=== PATIENT | female | born 1990 | race Two or more races ===

== ENCOUNTER 2016-08-24 07:30 | Inpatient (IN) | payer OTHER ==
[2016-08-24] MEDS ORDERED: CITRIC ACID/SODIUM CITRATE 30 ML UNIT-DOSE CUP PO ONE (08:52)
[2016-08-24] MEDS ORDERED: ELECTROLYTE-148 SOLN 1,000 ML IV SCH (09:00)
--- NOTE | 2016-08-24 09:03 | HP ---
Past Medical History - Primary Care Physician PCP:: Rory Perera - Admission Chief Complaint: 39 weeks, previous c/s , request of c/s and BTL History of Present Illness: 25 yo f edc by dania 08/30/16 39 weekswith 3 previous c/s , request of repeat c/s abd BTL, risk of c/s discussed aware risk of bowel, bladder, vessele injury, poat op complication , dvt,, post op transfusion, risk of btl discussed aware small failure risk and risk of ectopic History Source: Patient Limitations to Obtaining History: No Limitations - Past Medical History ...: 4 ...Para: 3 ...Term: 3 ...: 0 ... Weeks Gestation by Dates: 39 ...EDC by Dania: 08/31/16 Heme/Onc: Yes: Anemia - Past Surgical History Past Surgical History: Yes: Hx Myomectomy: No Hx Transabdominal Cerclage: No - Smoking History Smoking history: Never smoked Have you smoked in the past 12 months: No Aproximately how many cigarettes per day: 0 - Alcohol/Substance Use Hx Alcohol Use: No History of Substance Use: reports: None - Social History History of Recent Travel: No Home Medications - Allergies Allergies/Adverse Reactions: Allergies Allergy/AdvReac Type Severity Reaction Status Date / Time No Known Allergies Allergy Verified 03/11/12 14:29 - Home Medications Home Medications: Ambulatory Orders Acetaminophen [Tylenol .Regular Strength -] 650 mg PO Q4H PRN #0 tablet Ibuprofen [Motrin -] 600 mg PO Q4H PRN #0 tablet 07/07/13 Review of Systems - Review of Systems Constitutional: reports: No Symptoms Eyes: reports: No Symptoms HENT: reports: No Symptoms Cardiovascular: reports: No Symptoms Respiratory: reports: No Symptoms Gastrointestinal: reports: No Symptoms Genitourinary: reports: No Symptoms Breasts: reports: No Symptoms Reported Musculoskeletal: reports: No Symptoms Integumentary: reports: No Symptoms Neurological: reports: No Symptoms Endocrine: reports: No Symptoms Hematology/Lymphatic: reports: No Symptoms Psychiatric: reports: No Symptoms Physical Exam - Maternity Constitutional: Yes: Well Nourished, No Distress, Calm Eyes: Yes: WNL, Conjunctiva Clear, EOM Intact HENT: Yes: WNL, Atraumatic, Normocephalic Neck: Yes: WNL, Supple, Trachea Midline Cardiovascular: Yes: WNL, Regular Rate and Rhythm Breast(s): Yes: WNL - Abdominal Exam/OB Fundal Height: 40 Number of Fetuses: Single Presentation: Vertex Monitor Mode: External Heart Rate Location: [facility] Category: I Accelerations: Uniform Decelerations: None - Vaginal Exam/OB Vaginal Bleediing: No Speculum Exam: No Dilatation (cm): closed Effacement (%): 0 Amniotic Membrane Status: Intact Presentation: Vertex/Position Station: -3 - Physical Exam Musculoskeletal: Yes: Back Pain Edema: Yes Edema: LLE: Trace, RLE: Trace Deep Tendon Reflex Grade: Normal +2 Psychiatric: Yes: WNL Hemorrhage Risk Assessment - Risk Factors Medium Risk Factors: Yes: Prior , uterine surgery,or multiple laparotomies Risk Score: 1 Risk Level: Medium Risk Problem List - Problems (1) with 39 completed weeks gestation Code(s): Z3A.39 - 39 WEEKS GESTATION OF (2) Previous delivery affecting , antepartum Code(s): O34.219 - MATERNAL CARE FOR UNSP TYPE SCAR FROM PREVIOUS DEL (3) Sterilization Code(s): Z30.2 - ENCOUNTER FOR STERILIZATION Assessment/Plan repeat c/s and btl, rba discussed
[2016-08-24 09:07] VITALS: BMI 30.1
[2016-08-24 09:16] LABS: BASOPHIL 0.3 % (0-2.0); EOSINOPHIL 0.9 % (0-4.5); MCH 30.1 pg (25.7-33.7); MCHC 33.5 g/dl (32.0-36.0); MEAN CELL VOLUME 89.9 fl (80-96); MEAN PLT VOLUME 7.5 fl (7.5-11.1); NEUTROPHILS 64.6 % (42.8-82.8); PLATELET COUNT 232 K/MM3 (134-434); RDW 14.2 % (11.6-15.6); WHITE BLOOD COUNT 6.8 K/mm3 (4.0-10.0)
[2016-08-24 09:27] LABS: INR 0.93 (0.82-1.09); PROTHROMBIN TIME (PATIENT) 10.2 SEC (9.98-11.88)
[2016-08-24 09:30] LABS: ACTIVATED PTT 29.1 SECONDS (26.9-34.4)
[2016-08-24 09:38] LABS: CALCIUM 7.9 mg/dL (8.5-10.1); CREATININE 0.6 mg/dL (0.55-1.02)
[2016-08-24] MEDS ORDERED: IBUPROFEN 800 MG/8 ML IJ IVPB PRN ×2 (10:53→10:56)
[2016-08-24] MEDS ORDERED: ONDANSETRON 4 MG/2 ML VIAL IVPUSH PRN (10:53)
[2016-08-24] MEDS ORDERED: BENZOCAINE 28 GM HEMORRHOIDAL OINTMENT PR PRN (10:56)
[2016-08-24] MEDS ORDERED: diphenhydrAMINE HCL 25 MG CAPSULE (FP) PO PRN (10:56)
[2016-08-24] MEDS ORDERED: BENZOCAINE 20% 57 GM BOTTLE TP PRN (10:56)
[2016-08-24] MEDS ORDERED: METHYLERGONOVINE MALEATE 0.2 MG/1 ML AMP IM PRN (10:56)
[2016-08-24] MEDS ORDERED: WITCH HAZEL 50% (TUCKS) 40 PAD/JAR PAD TP PRN (10:56)
[2016-08-24] MEDS ORDERED: oxyCODONE HCL 5 MG TABLET PO PRN (10:56)
[2016-08-24] MEDS ORDERED: DEXTROSE 5%-LACTATED RINGERS 1,000 ML IV SCH (11:00)
[2016-08-24] MEDS ORDERED: OXYTOCIN 20 UNITS in 0.9% NS 1,000 ML IV SCH (11:00)
--- NOTE | 2016-08-24 13:03 | OP ---
DATE OF OPERATION: 08/24/2016 PREOPERATIVE DIAGNOSES: , 39 weeks; 3 previous sections; request of repeat section and tubal ligation. POSTOPERATIVE DIAGNOSES: , 39 weeks; 3 previous sections; request of repeat section and tubal ligation. PROCEDURE: Repeat low-segment transverse section. SURGEON: Rory Perera MD ADMINISTRATIVE STAFF SUPERVISOR: Lauren Madden MD ANESTHESIA: Spinal. ANESTHESIOLOGIST: Salbador Coleman MD ESTIMATED BLOOD LOSS: 500 mL. OPERATION: Patient was taken to the operating room on adequate spinal anesthesia. Abdomen and perineum was prepped and draped. Pfannenstiel abdominal skin incision was made over the previous incision. Abdominal wall was cut layer by layer until peritoneum was exposed and incised. Upon entering abdominal cavity, lower uterine segment was identified and uterovesical fold of peritoneum established. Bladder was pushed down. Then with the lower blade of the Lauren retractor in pelvis, a low transverse uterine incision was made, incision extended laterally. Amniotic sac was entered, clear fluid. Head delivered from right occiput transverse position. Nasopharynx was suctioned. Live baby was delivered. Placenta was delivered manually. Uterine cavity was cleaned of all remaining tissue. Uterine incision was closed in 2 layers, 1st layer with Biosyn continuous suture, the 2nd layer with 0 Biosyn imbricating the 1st layer. Bladder flap was closed with 0 Biosyn continuous suture. Both tubes and ovaries were checked, were normal. Right tube was grasped with Ervin clamp. Right tube was doubly tagged with 2-0 plain. A portion of the tube was removed and endosalpinx was cauterized. The same procedure repeated for opposite tube. Pelvic cavity was several times irrigated. No active bleeding was seen. All the lap, sponge, instrument count were correct. Then peritoneum was closed with 0 Biosyn continuous suture. Muscles were brought together with interrupted suture of 0 Biosyn. Fascia was closed with 0 Biosyn continuous suture, subcutaneous fat with interrupted suture of 0 Biosyn, and the skin was closed with tamiko. Patient tolerated procedure well, left the OR in good condition. Madonna [id number]
[2016-08-24] MEDS ORDERED: CEFAZOLIN (PRE-DOCKED) 50 ML IVPB ONE (17:40)
[2016-08-24] MEDS: CEFAZOLIN 1 GM/D5W 50 ML IVPB SCH (17:49)
[2016-08-24] MEDS: FERROUS SO4 325 MG TABLET (FP) PO SCH (22:00)
[2016-08-25] MEDS ORDERED: CEFAZOLIN (PRE-DOCKED) 50 ML IVPB ONE (01:39)
[2016-08-25] MEDS: CEFAZOLIN 1 GM/D5W 50 ML IVPB SCH (01:51)
[2016-08-25] MEDS: SIMETHICONE 80 MG TAB.CHEW (FP) PO PRN ×3 (04:40→22:11)
[2016-08-25] MEDS: IBUPROFEN 600 MG TABLET (FP) PO PRN ×3 (04:56→22:11)
[2016-08-25 08:25] LABS: BASOPHIL 0.2 % (0-2.0); MCH 30.7 pg (25.7-33.7); MCHC 34.2 g/dl (32.0-36.0); MEAN CELL VOLUME 89.8 fl (80-96); MEAN PLT VOLUME 7.7 fl (7.5-11.1); NEUTROPHILS 77.7 % (42.8-82.8); PLATELET COUNT 218 K/MM3 (134-434); RDW 14.4 % (11.6-15.6); WHITE BLOOD COUNT 9.4 K/mm3 (4.0-10.0)
--- NOTE | 2016-08-25 08:41 | PN ---
Post Progress Note - Subjective Subjective: no complains of pain Post Day: 1 Type of Delivery: Repeat C/S Vital Signs: Vital Signs Temperature 98.1 F 08/25/16 08:37 Pulse Rate 87 08/25/16 08:37 Respiratory Rate 20 08/25/16 08:37 Blood Pressure 109/65 08/25/16 08:37 O2 Sat by Pulse Oximetry (%) 100 08/24/16 11:45 Breast Exam: Yes: Soft, Other (bottle & BF ). No: Engorged Uterus: Yes: Fundus Firm, Fundus below umbilicus, Non-tender Incision: Yes: Dressing dry and intact. No: Redness, Oozing Abdomen/GI: Yes: Abdomen soft, Tender, Tolerating PO (clear liquids ). No: Abdominal Distention, Passing flatus Lochia: Yes: Rubra Lochia, amount: Moderate Extremities: Yes: Calves non-tender Perineum: Yes: Intact Activity: Ambulating - Labs Labs: CBC WBC 9.4 K/mm3 (4.0-10.0) D 08/25/16 06:50 RBC 4.17 M/mm3 (3.60-5.2) 08/25/16 06:50 Hgb 12.8 GM/dL (10.7-15.3) 08/25/16 06:50 Hct 37.5 % (32.4-45.2) 08/25/16 06:50 MCV 89.8 fl (80-96) 08/25/16 06:50 MCHC 34.2 g/dl (32.0-36.0) 08/25/16 06:50 RDW 14.4 % (11.6-15.6) 08/25/16 06:50 Plt Count 218 K/MM3 (134-434) 08/25/16 06:50 MPV 7.7 fl (7.5-11.1) 08/25/16 06:50 Neutrophils % 77.7 % (42.8-82.8) D 08/25/16 06:50 Lymphocytes % 10.8 % (8-40) D 08/25/16 06:50 Monocytes % 10.3 % (3.8-10.2) H 08/25/16 06:50 Eosinophils % 1.0 % (0-4.5) 08/25/16 06:50 Basophils % 0.2 % (0-2.0) 08/25/16 06:50 Assessment/Plan stable plan ct PO care, repeat cbc today
[2016-08-25] MEDS: ENOXAPARIN NA (PORCINE) 40 MG/0.4 ML DISP.SYRIN SQ SCH (09:21)
[2016-08-25] MEDS: FERROUS SO4 325 MG TABLET (FP) PO SCH ×2 (09:23→22:11)
[2016-08-25] MEDS ORDERED: DIPHTH,PERTUSS(ACELL),TET 0.5 ML DISP.SYRIN IM ONE (10:00)
[2016-08-25] MEDS ORDERED: BISACODYL 10 MG SUPP.RECT RC PRN (10:56)
--- NOTE | 2016-08-25 13:28 | PN ---
Progress Note (short form) - Note Progress Note: POD #1 - s/p repeat with bilateral tubal ligation under spinal anesthesia with duramorph. Pt. doing well, resting comfortably in bed. No complaints. Good pain control. No apparent anesthetic complications noted. Continue current care.
[2016-08-25] MEDS: oxyCODONE HCL 5 MG TABLET PO PRN ×2 (14:51→22:12)
--- NOTE | 2016-08-26 08:54 | PN ---
Post Progress Note Post Day: 2 Type of Delivery: Repeat C/S Vital Signs: Vital Signs Temperature 98.6 F 08/25/16 21:07 Pulse Rate 75 08/25/16 21:07 Respiratory Rate 20 08/25/16 21:07 Blood Pressure 115/81 08/25/16 21:07 O2 Sat by Pulse Oximetry (%) 100 08/24/16 11:45 Breast Exam: Yes: Soft Uterus: Yes: Fundus Firm Incision: Yes: Sutures intact Abdomen/GI: Yes: Abdomen soft Lochia: Yes: Rubra Lochia, amount: Small Extremities: Yes: Calves non-tender Perineum: Yes: Intact - Labs Labs: CBC WBC 9.4 K/mm3 (4.0-10.0) D 08/25/16 06:50 RBC 4.17 M/mm3 (3.60-5.2) 08/25/16 06:50 Hgb 12.8 GM/dL (10.7-15.3) 08/25/16 06:50 Hct 37.5 % (32.4-45.2) 08/25/16 06:50 MCV 89.8 fl (80-96) 08/25/16 06:50 MCHC 34.2 g/dl (32.0-36.0) 08/25/16 06:50 RDW 14.4 % (11.6-15.6) 08/25/16 06:50 Plt Count 218 K/MM3 (134-434) 08/25/16 06:50 MPV 7.7 fl (7.5-11.1) 08/25/16 06:50 Neutrophils % 77.7 % (42.8-82.8) D 08/25/16 06:50 Lymphocytes % 10.8 % (8-40) D 08/25/16 06:50 Monocytes % 10.3 % (3.8-10.2) H 08/25/16 06:50 Eosinophils % 1.0 % (0-4.5) 08/25/16 06:50 Basophils % 0.2 % (0-2.0) 08/25/16 06:50 Assessment/Plan as above oob pain control
[2016-08-26] MEDS: IBUPROFEN 600 MG TABLET (FP) PO PRN ×3 (08:56→21:38)
[2016-08-26] MEDS: SIMETHICONE 80 MG TAB.CHEW (FP) PO PRN ×2 (08:57→21:38)
[2016-08-26] MEDS: ENOXAPARIN NA (PORCINE) 40 MG/0.4 ML DISP.SYRIN SQ SCH (09:38)
[2016-08-26] MEDS: FERROUS SO4 325 MG TABLET (FP) PO SCH ×2 (09:38→21:39)
[2016-08-26] MEDS: oxyCODONE HCL 5 MG TABLET PO PRN ×2 (10:49→18:26)
--- NOTE | 2016-08-26 15:47 | DS ---
Physical Exam-DOOR TENDER Vital Signs: Vital Signs Temperature 97.9 F 08/26/16 07:30 Pulse Rate 72 08/26/16 07:30 Respiratory Rate 20 08/26/16 07:30 Blood Pressure 119/72 08/26/16 07:30 O2 Sat by Pulse Oximetry (%) 100 08/24/16 11:45 Constitutional: Yes: Well Nourished, No Distress, Calm Eyes: Yes: WNL, Conjunctiva Clear, EOM Intact HENT: Yes: WNL, Atraumatic, Normocephalic Neck: Yes: WNL, Supple, Trachea Midline Cardiovascular: Yes: WNL, Regular Rate and Rhythm Respiratory: Yes: WNL, Regular, CTA Bilaterally Gastrointestinal: Yes: WNL ...Rectal Exam: Yes: WNL Renal/: Yes: WNL Breast(s): Yes: WNL Musculoskeletal: Yes: WNL Extremities: Yes: WNL Integumentary: Yes: WNL Neurological: Yes: WNL, Alert, Oriented ...Motor Strength: WNL Psychiatric: Yes: WNL, Alert, Oriented Labs: CBC, BMP 08/25/16 06:50 08/24/16 08:50 Delivery - Delivery Type of Anesthesia: Spinal Episiotomy/Laceration: None EBL (cc): 500 Delivery, Single - Stages of Labor Date of Delivery: 08/24/16 Time of Delivery: 10:23 Time Placenta Delivered: 10:24 - Condition of Infant Finisher Machine/Portfolio Analyst Present: Yes Name: Sonja Wilson Gender: Female Weight: 7 lb 4 oz Position: Right, OT Total Hours ROM (Hrs/Mins): 3MIN - 1 Minute Total Score: 9 5 Minutes Total Score: 9 - Feeding Plan Initial Plan: Elected not to breastfeed exclusively throughout hospitalization Discharge Summary Reason For Visit: C/SEC Current Active Problems with 39 completed weeks gestation (Acute) Previous delivery affecting , antepartum (Acute) Sterilization (Acute) Condition: Good - Instructions Diet, Activity, Other Instructions: regular diet, folow up [facility] care 1 week Referrals: Rory Perera MD [Staff Physician] - Disposition: HOME - Home Medications Comprehensive Discharge Medication List: Ambulatory Orders Ferrous Sulfate [Feosol] 325 mg PO BID 08/24/16 Pnv95/Ferrous Fumarate/FA [ Vitamin Tablet] 1 tab PO DAILY 08/24/16 Ibuprofen [Motrin -] 600 mg PO QID #28 tablet 08/26/16
[2016-08-26] MEDS ORDERED: ACETAMINOPHEN 325 MG TABLET (FP) ONE (21:33)
[2016-08-26] MEDS: ACETAMINOPHEN 325 MG TABLET (FP) PO PRN (21:52)
[2016-08-26] MEDS ORDERED: SENNOSIDES/DOCUSATE COMBO (SENNA PLUS) TABLET (UD) PO PRN (22:00)
[2016-08-27 07:37] LABS: BASOPHIL 0.3 % (0-2.0); EOSINOPHIL 3.6 % (0-4.5); MCH 30.4 pg (25.7-33.7); MCHC 33.7 g/dl (32.0-36.0); MEAN CELL VOLUME 90.1 fl (80-96); MEAN PLT VOLUME 7.7 fl (7.5-11.1); NEUTROPHILS 65.5 % (42.8-82.8); PLATELET COUNT 230 K/MM3 (134-434); RDW 14.3 % (11.6-15.6); WHITE BLOOD COUNT 6.7 K/mm3 (4.0-10.0)
[2016-08-27] MEDS: IBUPROFEN 600 MG TABLET (FP) PO PRN ×2 (08:52→19:50)
[2016-08-27] MEDS: SIMETHICONE 80 MG TAB.CHEW (FP) PO PRN ×2 (08:53→19:49)
[2016-08-27] MEDS: ACETAMINOPHEN 325 MG TABLET (FP) PO PRN ×2 (08:53→19:49)
[2016-08-27] MEDS: ENOXAPARIN NA (PORCINE) 40 MG/0.4 ML DISP.SYRIN SQ SCH (09:28)
[2016-08-27] MEDS: FERROUS SO4 325 MG TABLET (FP) PO SCH ×2 (09:29→21:32)
--- NOTE | 2016-08-27 11:59 | PN ---
Post Progress Note - Subjective Subjective: c/o pain scale 4-5/10 Post Day: 3 Type of Delivery: Repeat C/S Vital Signs: Vital Signs Temperature 98.3 F 08/26/16 22:00 Pulse Rate 86 08/26/16 22:00 Respiratory Rate 18 08/26/16 22:00 Blood Pressure 103/56 08/26/16 22:00 O2 Sat by Pulse Oximetry (%) 100 08/24/16 11:45 Breast Exam: Yes: Soft, Other (BF ). No: Engorged Uterus: Yes: Fundus Firm, Fundus below umbilicus, Non-tender Incision: Yes: Lizbeth intact. No: Redness, Oozing Abdomen/GI: Yes: Abdomen soft, Passing flatus (bm done ), Tolerating PO (diet ) . No: Abdominal Distention, Tender Lochia: Yes: Rubra Lochia, amount: Moderate Extremities: Yes: Calves non-tender Perineum: Yes: Intact Activity: Ambulating - Labs Labs: CBC WBC 6.7 K/mm3 (4.0-10.0) 08/27/16 06:00 RBC 4.18 M/mm3 (3.60-5.2) 08/27/16 06:00 Hgb 12.7 GM/dL (10.7-15.3) 08/27/16 06:00 Hct 37.6 % (32.4-45.2) 08/27/16 06:00 MCV 90.1 fl (80-96) 08/27/16 06:00 MCHC 33.7 g/dl (32.0-36.0) 08/27/16 06:00 RDW 14.3 % (11.6-15.6) 08/27/16 06:00 Plt Count 230 K/MM3 (134-434) 08/27/16 06:00 MPV 7.7 fl (7.5-11.1) 08/27/16 06:00 Neutrophils % 65.5 % (42.8-82.8) 08/27/16 06:00 Lymphocytes % 20.6 % (8-40) D 08/27/16 06:00 Monocytes % 10.0 % (3.8-10.2) 08/27/16 06:00 Eosinophils % 3.6 % (0-4.5) D 08/27/16 06:00 Basophils % 0.3 % (0-2.0) 08/27/16 06:00 Assessment/Plan stable plan ct po care
--- NOTE | 2016-08-27 15:13 | PATH ---
Surgical Pathology Report Patient Name: NICK STRAUSS [facility]. Rec. #: [id number] /Age/Gender: 1990 (Age: 25) / F Account: [id number] Location: [facility] OBS/TELEPHONE INSTRUMENT SUPERVISOR Taken: 08/24/2016 Received: 08/25/2016 Reported: 08/27/2016 Physicians: Rory Perera M.D. Specimen(s) Received A: PLACENTA B: RIGHT PORTION FALLOPIAN TUBE C: LEFT PORTION FALLOPIAN TUBE Clinical History 39.1 weeks' gestation. Repeat section and bilateral tubal ligation. Anemia Final Diagnosis A. PLACENTA, DELIVERY: FOCALLY DISRUPTED THIRD TRIMESTER PLACENTA WITH THREE VESSEL UMBILICAL CORD AND UNREMARKABLE PLACENTAL MEMBRANES. B. RIGHT FALLOPIAN TUBE, PARTIAL EXCISION: FULL LUMINAL PORTION OF UNREMARKABLE FALLOPIAN TUBE. C. LEFT FALLOPIAN TUBE, PARTIAL EXCISION: FULL LUMINAL PORTION OF UNREMARKABLE FALLOPIAN TUBE. Electronically Signed Ernie Gupta M.D. Gross Description A. The specimen is received fresh labeled placenta and is a 428 gram, 20 x 17 x up to 2.5 cm. placenta with attached membranes and umbilical cord. The attached membranes are flores and glistening and insert marginally. The umbilical cord measures 48 cm. in length and averages 1.2 cm. in diameter. The cord inserts eccentrically, 5 cm. to the nearest margin. No true knots or strictures are identified. Cut surface of the umbilical cord reveals 3 vessels. The surface is flores-blue with minimal fibrin deposition and appropriate caliber vessels. The maternal surface is red-brown with focal defects. Sectioning reveals red-brown, spongy parenchyma. No lesions are identified. Legal Contracts Specialist sections are submitted in three cassettes as follows: 1- membrane rolls and umbilical cord; 2-3- full thickness sections of placenta. B. Received in formalin labelled "portion right fallopian tube" is a 1.0 cm long x 0.5 cm in diameter portion of tissue grossly consistent with a portion of fallopian tube. The fimbriated end is not identified. No focal lesions are identified. Sectioned and totally submitted in one cassette. C. Received in formalin labelled "left portion of fallopian tube" is a 0.8 cm long x 0.5 x 0.2 cm portion of tissue grossly consistent with a portion of fallopian tube. The fimbriated end is not identified. No focal lesions are identified. Bisected and totally submitted one cassette. [facility]/08/26/2016 [facility]/08/26/2016
[2016-08-27 20:58] VITALS: TEMP 98.3
[2016-08-28 08:39] VITALS: BP 122/79; PULSE 68
[2016-08-28] MEDS: ENOXAPARIN NA (PORCINE) 40 MG/0.4 ML DISP.SYRIN SQ SCH (09:08)
[2016-08-28] MEDS: SIMETHICONE 80 MG TAB.CHEW (FP) PO PRN (09:08)
[2016-08-28] MEDS: IBUPROFEN 600 MG TABLET (FP) PO PRN (09:08)
[2016-08-28] MEDS: FERROUS SO4 325 MG TABLET (FP) PO SCH (09:08)
[2016-08-28] MEDS: ACETAMINOPHEN 325 MG TABLET (FP) PO PRN (09:11)
--- NOTE | 2016-08-28 10:14 | PN ---
Post Progress Note - Subjective Subjective: no complains Post Day: 4 Type of Delivery: Repeat C/S Vital Signs: Vital Signs Temperature 98.3 F 08/28/16 08:38 Pulse Rate 68 08/28/16 08:38 Respiratory Rate 20 08/28/16 08:38 Blood Pressure 122/79 08/28/16 08:38 O2 Sat by Pulse Oximetry (%) 100 08/24/16 11:45 Breast Exam: Yes: Soft, Other (Bf ). No: Engorged Uterus: Yes: Fundus Firm, Fundus below umbilicus, Non-tender Incision: Yes: [place] intact. No: Redness, Oozing Abdomen/GI: Yes: Abdomen soft, Passing flatus, Tolerating PO, Other (diet ). No : Abdominal Distention, Tender Lochia: Yes: Rubra Lochia, amount: Moderate Extremities: Yes: Calves non-tender. No: Edema Perineum: Yes: Intact Activity: Ambulating - Labs Labs: CBC WBC 6.7 K/mm3 (4.0-10.0) 08/27/16 06:00 RBC 4.18 M/mm3 (3.60-5.2) 08/27/16 06:00 Hgb 12.7 GM/dL (10.7-15.3) 08/27/16 06:00 Hct 37.6 % (32.4-45.2) 08/27/16 06:00 MCV 90.1 fl (80-96) 08/27/16 06:00 MCHC 33.7 g/dl (32.0-36.0) 08/27/16 06:00 RDW 14.3 % (11.6-15.6) 08/27/16 06:00 Plt Count 230 K/MM3 (134-434) 08/27/16 06:00 MPV 7.7 fl (7.5-11.1) 08/27/16 06:00 Neutrophils % 65.5 % (42.8-82.8) 08/27/16 06:00 Lymphocytes % 20.6 % (8-40) D 08/27/16 06:00 Monocytes % 10.0 % (3.8-10.2) 08/27/16 06:00 Eosinophils % 3.6 % (0-4.5) D 08/27/16 06:00 Basophils % 0.3 % (0-2.0) 08/27/16 06:00 Assessment/Plan stable. plan discharge today
--- NOTE | 2016-08-29 13:11 | DS ---
Physical Exam-ACID REGENERATOR Vital Signs: Vital Signs Temperature 98.3 F 08/28/16 08:38 Pulse Rate 68 08/28/16 08:38 Respiratory Rate 20 08/28/16 08:38 Blood Pressure 122/79 08/28/16 08:38 O2 Sat by Pulse Oximetry (%) 100 08/24/16 11:45 Constitutional: Yes: Well Nourished, No Distress, Calm Eyes: Yes: WNL, Conjunctiva Clear, EOM Intact HENT: Yes: WNL, Atraumatic, Normocephalic Neck: Yes: WNL, Supple, Trachea Midline Cardiovascular: Yes: WNL, Regular Rate and Rhythm Respiratory: Yes: WNL, Regular, CTA Bilaterally Gastrointestinal: Yes: WNL ...Rectal Exam: Yes: WNL Renal/: Yes: WNL Vaginal Exam: Yes: Normal ....Post : Yes: Uterus firm, Uterus non-tender, Slight lochia rubra Breast(s): Yes: WNL Musculoskeletal: Yes: WNL Extremities: Yes: WNL Integumentary: Yes: WNL Wound/Incision: Yes: Clean/Dry, Well Approximated, Sutures Intact Neurological: Yes: WNL, Alert, Oriented ...Motor Strength: WNL Psychiatric: Yes: WNL, Alert, Oriented Labs: CBC, BMP 08/27/16 06:00 08/24/16 08:50 Delivery - Delivery Section: Repeat (no complication), Low Flap Transverse Type of Anesthesia: Spinal Episiotomy/Laceration: None EBL (cc): 500 Delivery, Single - Stages of Labor Date of Delivery: 08/24/16 Time of Delivery: 10:23 Time Placenta Delivered: 10:24 Placenta: Yes: Expressed - Condition of Infant Agency Sales Management Assistant/Precision Grinder External Present: Yes Name: Sonja Wilson Infant Gender: Female Weight: 7 lb 4 oz Position: Right, OT Total Hours ROM (Hrs/Mins): 3MIN - 1 Minute Total Score: 9 5 Minutes Total Score: 9 - [place] Feeding Plan Initial Plan: Elected not to breastfeed exclusively throughout hospitalization Discharge Summary Reason For Visit: C/SEC Procedures: Principal: repeat lst c/s Condition: Good - Instructions Diet, Activity, Other Instructions: regular diet, folow up [facility] care 1 week return to [facility] on 09/02/16 for tamiko removals. call for appointment. [phone] Referrals: Rory Perera MD [Staff Physician] - Disposition: HOME - Home Medications Comprehensive Discharge Medication List: Ambulatory Orders Ferrous Sulfate [Feosol] 325 mg PO BID 08/24/16 Pnv95/Ferrous Fumarate/FA [ Vitamin Tablet] 1 tab PO DAILY 08/24/16 Ibuprofen [Motrin -] 600 mg PO QID #28 tablet 08/26/16
== END 2016-08-28 12:20 | disposition home or self-care (01) | DRG 540 ==
LOC: JLDR 08:00 → J3W 12:46
PROVIDERS: ADMIT Obstetrics & Gynecology; ATTEND Obstetrics & Gynecology
PROC: 10D00Z1 Extraction of Products of Conception, Low, Open Approach (ICD-10-PCS; principal; 2016-08-24)
PROC: 0U570ZZ Destruction of Bilateral Fallopian Tubes, Open Approach (ICD-10-PCS; 2016-08-24)
DX: O34.211 Maternal care for low transverse scar from previous cesarean delivery (principal); Z3A.39 39 weeks gestation of pregnancy; Z37.0 Single live birth; Z30.2 Encounter for sterilization
CPT/HCPCS: 36415; 80048; 85025; 85610; 85730; 86593; 86850; 86900; 86901; 88302-TC; 88307-TC; 90715